=== PATIENT | female | born 1960 | race Asian ===

== ENCOUNTER → 2018-03-24 | Outpatient (CLI) | payer BC, OTHER ==
[~2018-03-24] MED LIST: CALCIUM1 CAP PO; CHOLEST-OFF PO; ESTROGENS0.3 MG PO; FISH OIL SUPER1 SGL PO; MULTIPLE VITAMI1 CAP PO; TYLENOL 325MG325 MG PO
== END ==
LOC: MC.RAD 10:09
DX: Z12.31 Encounter for screening mammogram for malignant neoplasm of breast (principal)

== ENCOUNTER 2019-01-13 07:16 | Day surgery (SDC) | payer BC, OTHER ==
[~2019-01-13] VITALS: Ht 157.5 cm; Wt 48.6 kg
[2019-01-13 07:34] VITALS: BP 97/71; PULSE 58; TEMP 97.8
[2019-01-13] MEDS ORDERED: MASON NATURAL2000 IU PO (07:39)
[2019-01-13] MEDS ORDERED: COSOPT 2%-0.5%10 ML OU (07:40)
[2019-01-13] MEDS ORDERED: RESTASIS0.05% OU (07:40)
[2019-01-13] MEDS ORDERED: TRAVATAN Z 5 ML5 ML OU (07:41)
[2019-01-13] MEDS ORDERED: REFRESH TEARS 330 ML OP (07:41)
[2019-01-13 09:05] VITALS: BP 91/55; PULSE 60; TEMP 97.2
--- NOTE | 2019-01-13 09:05 | NUR ---
PATIENT ARRIVES TO BAY 6 VIA CART FROM [place]. VS STARTED. BOWEL SOUNDS AUDIBLE. RESPIRATIONS EVEN AND UNLABORED. HEART SOUNDS NSR. DENIES NAUSEA AND PAIN. AT BEDSIDE. CALL LIGHT WITHIN REACH.
[2019-01-13 09:20] VITALS: BP 97/91; PULSE 60
--- NOTE | 2019-01-13 09:20 | NUR ---
PATIENT REQUESTS DION [facility] AND MARCELA. REMAINS AT BEDSIDE. CALL LIGHT WITHIN REACH. WILL CONTINUE TO MONITOR.
[2019-01-13 09:35] VITALS: BP 92/58; PULSE 64; TEMP 98
[2019-01-13 09:50] VITALS: BP 94/66; PULSE 72; TEMP 97.9
--- NOTE | 2019-01-13 09:50 | NUR ---
PATIENT AND HUSNAND GIVEN DISCHARGE INSTRUCTIONS. VERBALIZED UNDERSTANDING. DENIES PAIN OR NAUSEA. AMBULATED TO ELEVATOR AND DISCHARGED TO HOME WITH .
== END 2019-01-13 09:50 | disposition home or self-care (01) ==
LOC: SDCO 07:16
DX: K21.9 Gastro-esophageal reflux disease without esophagitis (principal); Z90.49 Acquired absence of other specified parts of digestive tract; Z90.710 Acquired absence of both cervix and uterus; Z87.891 Personal history of nicotine dependence
CPT/HCPCS: J2250; J3010; J7030

== ENCOUNTER → 2021-03-10 | Outpatient (CLI) | payer BC, OTHER ==
[~2021-03-10] MED LIST changes: +AMBIEN 10MG10 MG PO; +COSOPT 2%-0.5%10 ML OU; +MASON NATURAL2000 IU PO; +REFRESH TEARS 330 ML OP; +RESTASIS0.05% OU; +TRAVATAN Z 5 ML5 ML OU
== END ==
LOC: MC.RAD 07:33
DX: Z12.31 Encounter for screening mammogram for malignant neoplasm of breast (principal)

== ENCOUNTER 2021-05-29 08:23 | Day surgery (SDC) | payer BC, OTHER ==
[~2021-05-29] VITALS: Ht 157.5 cm; Wt 49.4 kg
[~2021-05-29 08:23] MED LIST changes: -AMBIEN 10MG10 MG PO
[2021-05-29] MEDS ORDERED: AMBIEN 10MG10 MG PO (08:48)
[2021-05-29 08:49] VITALS: BP 98/70; PULSE 66; TEMP 97.7
[2021-05-29 10:15] VITALS: BP 90/68; PULSE 65
[2021-05-29 10:30] VITALS: BP 98/70; PULSE 65
[2021-05-29 10:45] VITALS: BP 112/79; PULSE 63; TEMP 97.7
--- NOTE | 2021-05-29 10:52 | NUR ---
1015: PATIENT ARRIVED BACK TO BAY 5. AT BEDSIDE. SOFT BP NOTED, PATIENT STABLE WITH NO DIZZINESS OR LIGHTHEADEDNESS. DENIES PAIN/N/V. 1030: PATIENT VSS. AT BEDSIDE. HAD WATER AND JELLO. TOLERATED WELL. DENIES NAUSEA/VOMITING/PAIN. 1045: PATIENT VITALLY STABLE. DENIES PAIN, NAUSEA, VOMITING. WENT THROUGH DISCHARGE INFORMATION. QUESTIONS ANSWERED. VERBALIZED UNDERSTANDING TO DISCHARGE INSTRUCTIONS. IV D/C'D. PATIENT GOT DRESSED AND WAS ESCORTED TO EXIT VIA WHEELCHAIR WITH , JOVAN.
== END 2021-05-29 10:50 | disposition home or self-care (01) ==
LOC: SDCO 08:23
DX: Z12.11 Encounter for screening for malignant neoplasm of colon (principal); D12.5 Benign neoplasm of sigmoid colon; E78.5 Hyperlipidemia, unspecified; G47.00 Insomnia, unspecified; Z90.710 Acquired absence of both cervix and uterus; Z79.899 Other long term (current) drug therapy; Z87.891 Personal history of nicotine dependence; Z20.822 Contact with and (suspected) exposure to COVID-19
CPT/HCPCS: J2704; J7030

== ENCOUNTER → 2022-05-22 | Outpatient (CLI) | payer BC, OTHER ==
[~2022-05-22] MED LIST changes: +AMBIEN 10MG10 MG PO
== END ==
LOC: MC.RAD 04-22 07:15
DX: Z12.31 Encounter for screening mammogram for malignant neoplasm of breast (principal)